=== PATIENT | male | born 1985 | race African-American/Black ===

== ENCOUNTER 2023-01-20 05:53 | Emergency (ER) | payer OTHER ==
[~2023-01-20] VITALS: Ht 172.7 cm; Wt 90.7 kg
[~2023-01-20 05:53] MED LIST: CELEBREX100 MG PO; KETO10TA2 PO; LOTRISONE CREAM45 GM TP; ORPH100T PO; SKELAXIN800 MG PO
[2023-01-20] MEDS ORDERED: STENDRA100 MG (06:23)
[2023-01-20 07:32] LABS: HEMATOCRIT 46.8 % (39.0-48.0); MEAN CELL VOLUME 92.2 fL (80.0-100.00); MEAN CORPUSCULAR HEMOGLOBIN 31.5 pg (27.00-32.0); MEAN CORPUSCULAR HGB CONC 34.2 g/dl (32.0-36.0); PLATELET COUNT 258 K/uL (150-450); RED BLOOD COUNT 5.08 M/uL (4.00-6.00); RED CELL DISTRIBUTION WIDTH 13.1 % (11.5-14.5)
== END 2023-01-20 09:52 | disposition home or self-care (01) ==
LOC: ER 05:53
PROVIDERS: General Practice
DX: J06.9 Acute upper respiratory infection, unspecified (principal); L40.8 Other psoriasis; Z20.822 Contact with and (suspected) exposure to COVID-19